=== PATIENT | male | born 1985 | race Caucasian/White ===

== ENCOUNTER 2022-05-30 02:47 | Emergency (ER) | payer SELFPAY ==
[2022-05-30 03:19] LABS: #Basophils 0.1 thou/uL (0.0-0.2); #Eosinphils 0.1 thou/uL (0.0-0.7); #Lymphocytes 2.5 thou/uL (1.20-3.40); #Monocytes 0.7 thou/uL (0.11-0.59); #Neutrophils 7.4 thou/uL (1.40-6.50); %Eosinophils 1.2 % (0.0-10.0); %Lymphocytes 23.3 % (21.0-51.0); %Monocytes 6.3 % (0.0-10.0); %Neutrophils 68.3 % (42.0-75.0); Hemoglobin 15.3 g/dL (14.0-18.0); Mean Corpuscular HGB CONC 32.6 g/dL (32.0-36.0); Mean Corpuscular Hemoglobin 29.7 pg (27.0-31.0); Mean Corpuscular Volume 91.2 fl (78.0-98.0); Mean Platelet Volume 6.3 fL (7.4-10.4); Platelet Count 320 10x3/uL (130-400); RBC Distribution Width 12.1 % (11.5-14.5); Red Blood Cell (RBC) Count 5.14 mill/uL (4.70-6.10); White Blood Cell (WBC) Count 10.8 10x3/uL (4.8-10.8)
[2022-05-30 03:23] LABS: Bilirubin Negative (Negative); Blood, Urine Negative (Negative); Clarity Clear (Clear); Glucose, Urine (Dipstick) Negative (Negative); Ketone, Urine Negative (Negative); Leukocyte Negative (Negative); Nitrite Negative (Negative); Protein, Urine (Dipstick) Negative (Neg-Trace); Specific Gravity, Urine 1.025 (1.005-1.030)
[2022-05-30 03:39] LABS: AST (SGOT) 17 U/L (5-34); Albumin 4.5 g/dL (3.5-5.0); Alkaline Phosphatase 54 U/L (40-110); Anion Gap 13 mmol/L (10-20); BUN (Urea Nitrogen) 17 mg/dL (8.9-20.6); Bilirubin, Total 0.6 mg/dL (0.2-1.2); Calc. Creatinine Clearance 0 mL/min (70-130); Calcium 9.7 mg/dL (7.8-10.44); Carbon Dioxide 25 mmol/L (22-29); Chloride 106 mmol/L (98-107); Estimated GFR 88; Globulin 2.9 g/dL (2.4-3.5); Glucose 90 mg/dL (70-105); Protein, Total 7.4 g/dL (6.0-8.3); Sodium 140 mmol/L (136-145)
[2022-05-30 03:40] LABS: Amphetamine Detected (NotDetected); Barbiturates Screen Not Detected (NotDetected); Benzodiazepine Screen Not Detected (NotDetected); Cocaine Metabolite Screen Not Detected (NotDetected); Medtox Control Line Valid? VALID (VALID); Methadone Not Detected (NotDetected); Methamphetamine Detected (NotDetected); Opiate Screen Not Detected (NotDetected); Oxycodone Screen Not Detected (NotDetected); Phencyclidine (PCP) Not Detected (NotDetected); THC/Cannabinoid Screen Not Detected (NotDetected); Tricyclic Screen Not Detected (NotDetected)
[2022-05-30 03:55] LABS: ALT (SGPT) 19 U/L (8-55)
[2022-05-30] MEDS ORDERED: Ondansetron ODT 4 MG TAB ONE (04:16)
[2022-05-30] MEDS ORDERED: Morphine 2 MG/ML VIAL ONE (04:16)
[2022-05-30] MEDS ORDERED: Morphine 4 MG/ML VIAL ONE (04:17)
[2022-05-30] MEDS ORDERED: Ketorolac Tromethamine 30 MG/ML VIAL ONE (04:36)
== END 2022-05-30 04:35 | disposition home or self-care (01) ==
LOC: BURERS 02:47
DX: R10.9 Unspecified abdominal pain (principal); F17.210 Nicotine dependence, cigarettes, uncomplicated
CPT/HCPCS: 36415; 74176; 80053; 80306; 81003; 83690; 85025; 96372; J1885; J2270; J2272; Q0162

== ENCOUNTER 2023-04-02 10:29 | Observation (INO) | payer OTHER ==
[~2023-04-02 10:29] MED LIST: Iopamidol 370 76% 100 ML VIAL ONE
[2023-04-02] MEDS ORDERED: Sodium Chloride 0.9% 1,000 ML ONE (11:13)
[2023-04-02 11:16] LABS: Band 14 % (5-11); Hematocrit 36.1 % (42.0-52.0); Hemoglobin 11.9 g/dL (14.0-18.0); Lymphocytes 3 % (21-51); MDiff Complete? YES; Mean Corpuscular Hemoglobin 27.8 pg (27.0-31.0); Mean Corpuscular Volume 84.3 fl (78.0-98.0); Mean Platelet Volume 5.9 fL (7.4-10.4); Metamyelocyte 1 % (0-0); Monocytes 1 % (0-10); Neutrophil 81 % (42-75); Platelet Count 453 10x3/uL (130-400); RBC Distribution Width 13.1 % (11.5-14.5); Red Blood Cell (RBC) Count 4.28 mill/uL (4.70-6.10); Small Platelets SLIGHT HPF (0-15); Vacuoles SLIGHT; White Blood Cell (WBC) Count 36.2 10x3/uL (4.8-10.8)
[2023-04-02 11:20] LABS: ALT (SGPT) 29 U/L (8-55); AST (SGOT) 22 U/L (5-34); Albumin 2.8 g/dL (3.5-5.0); Alkaline Phosphatase 109 U/L (40-110); Anion Gap 16 mmol/L (10-20); BUN (Urea Nitrogen) 17 mg/dL (8.9-20.6); Bilirubin, Total 1.4 mg/dL (0.2-1.2); Calc. Creatinine Clearance 0 mL/min (70-130); Calcium 8.9 mg/dL (7.8-10.44); Carbon Dioxide 28 mmol/L (22-29); Chloride 94 mmol/L (98-107); Estimated GFR 114; Globulin 3.4 g/dL (2.4-3.5); Glucose 135 mg/dL (70-105); Potassium 3.9 mmol/L (3.5-5.1); Protein, Total 6.2 g/dL (6.0-8.3); Sodium 134 mmol/L (136-145)
[2023-04-02 11:23] LABS: Troponin I Less than 0.010 ng/mL (< 0.028)
[2023-04-02] MEDS ORDERED: Piperacillin/Tazobactam 4.5 GM VIAL ONE (11:23)
[2023-04-02] MEDS ORDERED: Vancomycin 1 GM VIAL ONE ×2 (12:05→13:45)
[2023-04-02 12:30] LABS: SARS-CoV-2 NAA Rapid Test Not Detected (NotDetected)
[2023-04-02] MEDS ORDERED: Ondansetron ODT 4 MG TAB PO PRN (16:45)
[2023-04-02] MEDS ORDERED: Polyethylene Glycol 3350 17 GM Packet PO PRN (16:45)
[2023-04-02 17:31] VITALS: BMI 25.1
[2023-04-02] MEDS ORDERED: VANCOMYCIN IVPB PRN (19:53)
[2023-04-02] MEDS: Piperacillin/Tazobactam 3.375 GM in Sodium Chloride 0.9% 100 ML IVPB SCH (20:28)
[2023-04-02] MEDS: Oseltamivir 75 MG CAP PO SCH (20:29)
[2023-04-03] MEDS: Vancomycin 1 GM in Sodium Chloride 0.9% 250 ML 250 ML IVPB SCH (00:48)
[2023-04-03] MEDS: Acetaminophen 325 MG TAB PO PRN (03:57)
[2023-04-03 05:48] LABS: ALT (SGPT) 28 U/L (8-55); AST (SGOT) 24 U/L (5-34); Alkaline Phosphatase 104 U/L (40-110); Anion Gap 13 mmol/L (10-20); BUN (Urea Nitrogen) 13 mg/dL (8.9-20.6); Bilirubin, Total 0.4 mg/dL (0.2-1.2); Calc. Creatinine Clearance 166 mL/min (70-130); Calcium 8.2 mg/dL (7.8-10.44); Carbon Dioxide 26 mmol/L (22-29); Chloride 103 mmol/L (98-107); Estimated GFR 123; Glucose 115 mg/dL (70-105); Potassium 3.4 mmol/L (3.5-5.1); Protein, Total 5.1 g/dL (6.0-8.3); Sodium 139 mmol/L (136-145)
[2023-04-03 05:56] LABS: #Eosinphils 0.1 thou/uL (0.0-0.7); #Lymphocytes 1.5 thou/uL (1.20-3.40); #Monocytes 1.1 thou/uL (0.11-0.59); #Neutrophils 30.5 thou/uL (1.40-6.50); %Basophils 0.1 % (0.0-1.0); %Eosinophils 0.2 % (0.0-10.0); %Lymphocytes 4.5 % (21.0-51.0); %Monocytes 3.4 % (0.0-10.0); %Neutrophils 91.8 % (42.0-75.0); Hematocrit 30.2 % (42.0-52.0); Hemoglobin 10.2 g/dL (14.0-18.0); Mean Corpuscular HGB CONC 33.8 g/dL (32.0-36.0); Mean Corpuscular Hemoglobin 28.5 pg (27.0-31.0); Mean Corpuscular Volume 84.3 fl (78.0-98.0); Mean Platelet Volume 5.8 fL (7.4-10.4); Platelet Count 489 10x3/uL (130-400); RBC Distribution Width 13.4 % (11.5-14.5); Red Blood Cell (RBC) Count 3.58 mill/uL (4.70-6.10); White Blood Cell (WBC) Count 33.2 10x3/uL (4.8-10.8)
[2023-04-03 06:12] LABS: Albumin 2.4 g/dL (3.5-5.0)
[2023-04-03] MEDS: Saccharomyces boulardii 250 MG CAP PO SCH (09:21)
[2023-04-03 23:21] LABS: Vancomycin, Trough 6.3 ug/mL
[2023-04-04] MEDS ORDERED: Dicyclomine 20 MG TAB PO PRN (00:11)
[2023-04-04] MEDS: Vancomycin 1 GM in Sodium Chloride 0.9% 250 ML 250 ML IVPB SCH (00:21)
[2023-04-04] MEDS: Dicyclomine 20 MG TAB PO SCH (00:21)
[2023-04-04 05:47] LABS: #Basophils 0.1 thou/uL (0.0-0.2); #Eosinphils 0.2 thou/uL (0.0-0.7); #Lymphocytes 2.1 thou/uL (1.20-3.40); #Monocytes 0.8 thou/uL (0.11-0.59); #Neutrophils 13.3 thou/uL (1.40-6.50); %Basophils 0.6 % (0.0-1.0); %Eosinophils 1.2 % (0.0-10.0); %Lymphocytes 12.7 % (21.0-51.0); %Monocytes 4.6 % (0.0-10.0); %Neutrophils 80.9 % (42.0-75.0); Hematocrit 34.1 % (42.0-52.0); Hemoglobin 11.3 g/dL (14.0-18.0); Mean Corpuscular HGB CONC 33.3 g/dL (32.0-36.0); Mean Corpuscular Hemoglobin 28.5 pg (27.0-31.0); Mean Corpuscular Volume 85.7 fl (78.0-98.0); Mean Platelet Volume 5.9 fL (7.4-10.4); Platelet Count 533 10x3/uL (130-400); RBC Distribution Width 13.7 % (11.5-14.5); Red Blood Cell (RBC) Count 3.98 mill/uL (4.70-6.10); White Blood Cell (WBC) Count 16.5 10x3/uL (4.8-10.8)
[2023-04-04 06:02] LABS: ALT (SGPT) 28 U/L (8-55); AST (SGOT) 17 U/L (5-34); Albumin 2.4 g/dL (3.5-5.0); Alkaline Phosphatase 92 U/L (40-110); Anion Gap 14 mmol/L (10-20); BUN (Urea Nitrogen) 14 mg/dL (8.9-20.6); Bilirubin, Total 0.3 mg/dL (0.2-1.2); Calc. Creatinine Clearance 156 mL/min (70-130); Calcium 8.2 mg/dL (7.8-10.44); Carbon Dioxide 27 mmol/L (22-29); Chloride 105 mmol/L (98-107); Estimated GFR 121; Globulin 2.8 g/dL (2.4-3.5); Glucose 98 mg/dL (70-105); Potassium 3.7 mmol/L (3.5-5.1); Protein, Total 5.2 g/dL (6.0-8.3); Sodium 142 mmol/L (136-145)
[2023-04-04] MEDS: Ibuprofen 800 MG TAB PO SCH (10:34)
[2023-04-04 23:24] LABS: Vancomycin, Trough 9.4 ug/mL
[2023-04-04] MEDS: Vancomycin HCl 750 MG in Sodium Chloride 0.9% 250 ML 250 ML IVPB SCH (23:51)
[2023-04-05] MEDS: Vancomycin HCl 750 MG in Sodium Chloride 0.9% 250 ML 250 ML IVPB SCH (01:06)
[2023-04-05 06:18] LABS: Hematocrit 37.7 % (42.0-52.0); Hemoglobin 12.3 g/dL (14.0-18.0); MDiff Complete? YES; Mean Corpuscular HGB CONC 32.5 g/dL (32.0-36.0); Mean Corpuscular Hemoglobin 28.1 pg (27.0-31.0); Mean Corpuscular Volume 86.4 fl (78.0-98.0); Mean Platelet Volume 5.4 fL (7.4-10.4); Platelet Count 645 10x3/uL (130-400); RBC Distribution Width 13.7 % (11.5-14.5); Red Blood Cell (RBC) Count 4.37 mill/uL (4.70-6.10); White Blood Cell (WBC) Count 19.8 10x3/uL (4.8-10.8)
[2023-04-05 06:19] LABS: Band 5 % (5-11); Eosinophils 1 % (0-10); Lymphocytes 27 % (21-51); Monocytes 4 % (0-10); Neutrophil 62 % (42-75); Platelet Adequacy Comment Appears Increased
[2023-04-05] MEDS: Mometasone/Formoterol 200/5 60 PUFF INH SCH (09:20)
[2023-04-05 23:19] LABS: Vancomycin, Trough 17.9 ug/mL
[2023-04-06 06:19] LABS: Band 4 % (5-11); Eosinophils 1 % (0-10); Hematocrit 36.3 % (42.0-52.0); Hemoglobin 12.1 g/dL (14.0-18.0); Lymphocytes 15 % (21-51); MDiff Complete? YES; Mean Corpuscular HGB CONC 33.3 g/dL (32.0-36.0); Mean Corpuscular Hemoglobin 28.4 pg (27.0-31.0); Mean Corpuscular Volume 85.1 fl (78.0-98.0); Mean Platelet Volume 5.3 fL (7.4-10.4); Metamyelocyte 6 % (0-0); Monocytes 1 % (0-10); Neutrophil 73 % (42-75); Platelet Adequacy Comment Appears Increased; Platelet Count 648 10x3/uL (130-400); RBC Distribution Width 13.6 % (11.5-14.5); Red Blood Cell (RBC) Count 4.27 mill/uL (4.70-6.10); White Blood Cell (WBC) Count 20.1 10x3/uL (4.8-10.8)
[2023-04-06 23:40] LABS: Vancomycin, Trough 10.5 ug/mL
[2023-04-07 05:11] LABS: #Basophils 0.1 thou/uL (0.0-0.2); #Eosinphils 0.4 thou/uL (0.0-0.7); #Lymphocytes 2.3 thou/uL (1.20-3.40); #Monocytes 0.7 thou/uL (0.11-0.59); #Neutrophils 12.2 thou/uL (1.40-6.50); %Basophils 0.9 % (0.0-1.0); %Eosinophils 2.6 % (0.0-10.0); %Lymphocytes 14.7 % (21.0-51.0); %Monocytes 4.4 % (0.0-10.0); %Neutrophils 77.4 % (42.0-75.0); Hematocrit 37.2 % (42.0-52.0); Hemoglobin 12.4 g/dL (14.0-18.0); Mean Corpuscular HGB CONC 33.3 g/dL (32.0-36.0); Mean Corpuscular Hemoglobin 28.6 pg (27.0-31.0); Mean Corpuscular Volume 85.8 fl (78.0-98.0); Mean Platelet Volume 5.6 fL (7.4-10.4); Platelet Count 713 10x3/uL (130-400); RBC Distribution Width 13.5 % (11.5-14.5); Red Blood Cell (RBC) Count 4.34 mill/uL (4.70-6.10); White Blood Cell (WBC) Count 15.8 10x3/uL (4.8-10.8)
[2023-04-07 11:53] VITALS: BP 123/72; TEMP 98.1
== END 2023-04-07 12:00 ==
LOC: BURERS 10:29 → EEVIPCON 10:29 → BURMED 14:28 → INTOOBSV 04-03 14:02 → OBSVTOIN 04-03 14:02
PROVIDERS: ADMIT Family Medicine; ATTEND Family Medicine
DX: A41.89 Other specified sepsis (principal); J10.00 Influenza due to other identified influenza virus with unspecified type of pneumonia; D72.829 Elevated white blood cell count, unspecified; F17.200 Nicotine dependence, unspecified, uncomplicated
CPT/HCPCS: 36415; 71045; 71046; 71260; 80053; 80202; 83605; 84145; 84484; 85025; 87040; 87081; 93005; 96365; 96366; 96367; 96376; G0378; J2543; J3370; J3490; J7050; Q9967